=== PATIENT | female | born 1965 | race Caucasian/White ===

== ENCOUNTER 2024-01-02 21:11 | Observation (INO) ==
--- NOTE | 2024-01-02 21:31 | Emergency Department Note ---
History of Present Illness General Chief complaint: Hypertension Stated complaint: HTN Time Seen by Provider: 01/02/24 21:29 History of Present Illness NAME: SARA UNDERWOOD AGE: 58 SEX: F : 1965 ARRIVES VIA: Walk-In INFORMANT: Patient ED PROVIDER(S): VLAD Carbajal, Leonel Coates MD The patient is a pleasant 58-year-old female who arrives to the emergency department for evaluation of hypertension. She reports she was eating dinner this evening, when she noted to have some epigastric pain. She states she began to feel slightly strange, and took her blood pressure. She states her blood pressure was approximately 190s over 100s at that time. She states she currently takes losartan with hydrochlorothiazide. She also has a history of GERD which she takes Protonix and Pepcid for. She reports she came to the emergency department due to the elevated blood pressure, however she states the epigastric symptoms have resolved since. She denies any chest pain, shortness of breath, but reports slight nausea with no vomiting. She denies any history of gallbladder disease, or abdominal pain. Home Medications Medication Instructions Recorded Confirmed Type hydrochlorothiazide 25 mg tablet 25 mg PO QAM 01/02/24 01/02/24 History losartan 25 mg tablet 25 mg PO QAM 01/02/24 01/02/24 History omeprazole 40 mg capsule,delayed 40 mg PO QAM 01/02/24 01/02/24 History release rosuvastatin 20 mg tablet 20 mg PO QAM 01/02/24 01/02/24 History Allergies Allergy/AdvReac Type Severity Reaction Status Date / Time captopril AdvReac Gastrointestinal Verified 01/02/24 23:58 Upset meclizine AdvReac Gastrointestinal Verified 01/02/24 23:58 Upset Past Med/Surg History Problem List (Updated 01/03/24 @ 00:03 by VLAD Sidhu) Acute electrocardiogram changes (Acute) Hypertension (Acute) Social History Smoking Status: Never smoker Preferred Language: Barbadian Feels Safe at Home: Yes Physical Exam Vital Signs Vital Signs - 24 hr 01/02/24 21:18 01/02/24 21:32 01/02/24 21:33 Temperature 36.5 C Temperature Source Temporal Artery Scan Pulse Rate 95 H 87 84 Pulse Rate [Apical] Pulse Rate from SpO2 Sensor Pulse Rhythm Pulse Rhythm [Apical] Pulse Strength [Apical] Respiratory Rate 18 27 H Respiratory Effort / Characteristics Non-Labored Spontaneous Respiratory Depth Normal Respiratory Pattern Blood Pressure 162/96 H 150/91 H Blood Pressure [Left Arm] Blood Pressure Mean 118 110 Blood Pressure Mean [Left Arm] Pulse Oximetry 97 Oxygen Delivery Method Room Air Sepsis Recent Fever Within 48 Hours No Sepsis New/Unexplained Change in Mental Status No Sepsis Action Taken by Nursing No Action Required 01/02/24 21:42 01/02/24 21:42 01/02/24 22:03 Temperature Temperature Source Pulse Rate 81 81 Pulse Rate [Apical] 83 Pulse Rate from SpO2 Sensor Pulse Rhythm Irregular Pulse Rhythm [Apical] Irregular Pulse Strength [Apical] Normal Respiratory Rate 16 16 15 Respiratory Effort / Characteristics Non-Labored Spontaneous Respiratory Depth Normal Respiratory Pattern Regular Blood Pressure 136/89 Blood Pressure [Left Arm] 150/91 H Blood Pressure Mean 104 Blood Pressure Mean [Left Arm] 110 Pulse Oximetry 93 91 92 Oxygen Delivery Method Room Air Room Air Sepsis Recent Fever Within 48 Hours Sepsis New/Unexplained Change in Mental Status Sepsis Action Taken by Nursing 01/02/24 23:09 Temperature Temperature Source Pulse Rate 73 Pulse Rate [Apical] Pulse Rate from SpO2 Sensor 72 Pulse Rhythm Pulse Rhythm [Apical] Pulse Strength [Apical] Respiratory Rate 16 Respiratory Effort / Characteristics Respiratory Depth Respiratory Pattern Blood Pressure 126/81 Blood Pressure [Left Arm] Blood Pressure Mean 96 Blood Pressure Mean [Left Arm] Pulse Oximetry 95 Oxygen Delivery Method Room Air Sepsis Recent Fever Within 48 Hours Sepsis New/Unexplained Change in Mental Status Sepsis Action Taken by Nursing VITALS: Vitals are noted on the nurse's note and reviewed by myself. Vital signs stable. GENERAL: 58-year-old female, in no acute distress, nondiaphoretic, well- developed well-nourished. SKIN: The skin was without rashes, erythema, edema, or bruising. HEAD: Normocephalic atraumatic. MOUTH: Mucous membranes moist. Pharynx without erythema or exudate. Uvula midline. Airway patent. Tongue does not deviate. HEART: Regular rate and rhythm without murmurs gallops or rubs. LUNGS: Clear to auscultation bilaterally without wheezes, rales or rhonchi. No retractions or accessory muscle use. ABDOMEN: Positive bowel sounds x 4. Soft, slight tenderness to palpation in the epigastrium. No rebound tenderness or guarding. MUSCULOSKELETAL: No muscle atrophy, erythema, or edema noted. Normal gait. Strength 5/5 throughout. NEURO: Patient was alert and oriented to person place and time. No focal neurological deficits. Medical Decision Making Differential Diagnosis Cardiac ischemia, aortic dissection, pulmonary embolism, pneumothorax, pneumonia, pericarditis, myocarditis, esophageal rupture, GERD, cholecystitis, pancreatitis, musculoskeletal, as well as other pathologies. Medical Records Attestation: I reviewed the patient's medical records. Laboratory Data Attestation: I reviewed the patient's lab results. CBC shows slight leukopenia, with a stable hemoglobin and hematocrit, CMP shows creatinine 1.41, troponin initial is negative, repeat pending at time of admission. TSH 20.633 with free T4 of 0.68. 01/02/24 21:38 01/02/24 21:38 Lab Results 01/02/24 Range/Units 21:38 WBC 4.55 L (4.8-10.8) K/ul RBC 4.13 L (4.20-5.40) M/uL Hgb 13.1 (12.0-16.0) g/dl Hct 38.2 (37.0-47.0) % MCV 92.5 (80.0-100.0) fL MCH 31.7 (25.0-34.0) pg MCHC 34.3 (32.0-36.0) g/dL RDW Std Deviation 44.7 (36.4-46.3) fL RDW Coeff of Deloris 13.2 (11.5-14.5) % Plt Count 261 (130-400) K/uL MPV 9.5 (9.4-12.4) fL Immature Gran % (Auto) 0.2 % Neut % (Auto) 62.4 % Lymph % (Auto) 28.1 % [place] % (Auto) 6.2 % Eos % (Auto) 2.2 % Baso % (Auto) 0.9 % Neut # (Auto) 2.84 (1.40-6.50) K/uL Lymph # (Auto) 1.28 (1.20-3.40) K/uL [place] # (Auto) 0.28 (0.11-0.59) K/uL Eos # (Auto) 0.10 (0.00-0.50) K/uL Baso # (Auto) 0.04 (0.00-0.20) K/uL Immature Gran # (Auto) 0.01 (0.01-0.20) K/uL Sodium 143 (136-145) mmol/L Potassium 3.9 (3.5-5.1) mmol/L Chloride 107 (98-107) mmol/L Carbon Dioxide 29 (21-32) mmol/L Anion Gap 7 (3-11) BUN 17 (6-23) mg/dl Creatinine 1.41 H (0.6-1.2) mg/dl Est Cr Clr Drug Dosing 39.2 ml/min Est GFR ( Amer) 47.5 ml/min Est GFR (Non-Af Amer) 41.0 ml/min BUN/Creatinine Ratio 12.1 (10-20) Glucose 118 H (70-99(Fasting)) mg/dl Calcium 8.6 (8.6-10.3) mg/dl Total Bilirubin 0.3 (0.2-1.0) mg/dl AST 28 (13-39) U/L ALT 25 (7-52) U/L Alkaline Phosphatase 67 (34-104) U/L Troponin I High Sens 6.8 (0-14) pg/ml Total Protein 7.6 (6.0-8.3) gm/dl Albumin 4.8 (3.4-5.0) gm/dl Globulin 2.8 (2.5-4.0) gm/dl Albumin/Globulin Ratio 1.7 (0.9-2) Lipase 43 (11-82) U/L TSH 20.633 H (0.300-4.500) uIu/ml Free T4 0.68 (0.61-1.60) ng/dl Imaging Data Attestation: I personally reviewed and interpreted this imaging study as follows: My Impression: Initial x-ray interpretation per myself shows no acute cardiopulmonary process. ECG Data Attestation: I personally reviewed and interpreted this ECG as follows: Indication: + abdominal pain Rate (beats per minute): 79 Rhythm: + normal sinus ECG Intervals/blocks: + Right Bundle branch block Comparison ECG Date: from (08/2022) Change: the following changes noted (New RBBB) Blood Pressure Blood Pressure Findings: Elevated blood pressure Blood Pressure Disposition: further management by hospitalist MDM Narrative The patient is a pleasant well-appearing 58-year-old female who arrives to the emergency department for evaluation of the above-stated complaint. Upon examination the patient has slight tenderness to the epigastrium, with resolution of the hypertension. She denies any significant chest pain, and states she does take omeprazole as well as Pepcid daily. A saline lock was established, CBC, CMP, troponin, lipase, TSH were obtained. CBC shows slight leukopenia, with a stable hemoglobin and hematocrit, CMP shows elevation of creatinine at 1.41, initial troponin negative, repeat troponin pending at time of admission. Lipase negative, TSH elevated at 20.633, with free T4 of 0.68. EKG was obtained which showed a new right bundle branch block from her previous EKG of August 2022. Due to the patient's episode of hypertension, as well as pain in the epigastrium, I do believe the patient needs admitted to the hospital for further workup. I spoke with patient regarding the plan of care, which she was agreeable to. Case management was contacted to facilitate admission to the [facility] hospitalist group. Dr. Salas, agreed to accept the patient for admission. Please refer to his documentation for further patient workup and care. Continuous business unit leader: Order was placed for continuous business unit leader. Patient was placed on the business unit leader. Patient was noted to be in normal sinus rhythm, at an initial rate of 87 bpm. Impression & Plan Hypertension, Acute electrocardiogram changes Discharge Plan Visit Data Chief Complaint: Hypertension Stated Complaint: HTN ED Provider: Leonel Coates ED Midlevel Provider: Laurie Boone Discharge Problem: Hypertension, Acute electrocardiogram changes Forms Stand Alone Forms: My [facility] [employer] Prescriptions Prescriptions: No Action omeprazole 40 mg capsule,delayed release(DR/EC) 40 mg PO QAM losartan 25 mg tablet 25 mg PO QAM hydrochlorothiazide 25 mg tablet 25 mg PO QAM rosuvastatin 20 mg tablet 20 mg PO QAM Referrals Referrals: [facility],Medicine [Non-Staff] - Discharge Problem: Hypertension Qualifiers: Hypertension type: unspecified Qualified Code(s): I10 - Essential (primary) hypertension
[2024-01-02 21:55] LABS: Basophils # (auto) 0.04 K/uL (0.00-0.20); Basophils % (auto) 0.9 %; Eosinophils % (auto) 2.2 %; Hematocrit (blood only) 38.2 % (37.0-47.0); Hemoglobin 13.1 g/dl (12.0-16.0); Immature Granulocytes # (auto) 0.01 K/uL (0.01-0.20); Immature Granulocytes % (auto) 0.2 %; Lymphocytes # (auto) 1.28 K/uL (1.20-3.40); Lymphocytes % (auto) 28.1 %; Mean Corpuscular Hemoglobin 31.7 pg (25.0-34.0); Mean Corpuscular Hgb Conc 34.3 g/dL (32.0-36.0); Mean Corpuscular Volume 92.5 fL (80.0-100.0); Mean Platelet Volume 9.5 fL (9.4-12.4); Monocytes # (auto) 0.28 K/uL (0.11-0.59); Monocytes % (auto) 6.2 %; Neutrophils # (auto) 2.84 K/uL (1.40-6.50); Neutrophils % (auto) 62.4 %; Platelet Count 261 K/uL (130-400); RDW Coefficient of Variation 13.2 % (11.5-14.5); RDW Standard Deviation 44.7 fL (36.4-46.3); Red Blood Count 4.13 M/uL (4.20-5.40); White Blood Count 4.55 K/ul (4.8-10.8)
[2024-01-02 22:07] LABS: Albumin Globulin Ratio 1.7 (0.9-2); Albumin Level 4.8 gm/dl (3.4-5.0); BUN Creatinine Ratio 12.1 (10-20); Bilirubin,Total 0.3 mg/dl (0.2-1.0); Calcium 8.6 mg/dl (8.6-10.3); Creatinine Clr Calc Pharmacy 39.2 ml/min; Est GFR (African American) 47.5 ml/min; Globulin 2.8 gm/dl (2.5-4.0); Potassium 3.9 mmol/L (3.5-5.1); Total Protein 7.6 gm/dl (6.0-8.3)
[2024-01-02 22:14] LABS: Troponin I High Sensitivity 6.8 pg/ml (0-14)
[2024-01-02 22:33] LABS: Thyroid Stimulating Hormone 20.633 uIu/ml (0.300-4.500)
[2024-01-02 23:09] LABS: T4 Free Thyroxine 0.68 ng/dl (0.61-1.60)
[2024-01-03] MEDS: PANTOprazole 40 MG in SYRINGE 0 ML IV ONE (02:16)
--- NOTE | 2024-01-03 03:47 | History & Physical Report ---
Date of Service January 03, 2024 Assessment & Plan (1) Epigastric abdominal pain: Plan: 58-year-old female with past medical history significant for hypertension, GERD, dyslipidemia comes because of epigastric abdominal pain and elevated blood pressure and found to have abnormal EKG. Patient is from [place] and speaks Bruneian. She knows little Vietnamese. Sometimes uses phone gabriela for interpretation. Patient says today after dinner she developed severe epigastric abdominal pain associate with some nausea. And when she checked her blood pressure systolically was in 190s when she decided to come to the hospital. By time she came to the ER abdominal pain mostly subsided and her blood pressure improved. But EKG showed right bundle branch block which is new from August 2022. Currently patient resting comfortably. Says has mild headache. No dizziness. Currently nausea is improved. Vision is okay. No cough. No sore throat. No fevers. Denies any chest pain. No shortness of breath. Still has some stomach upset and epigastric abdominal pain. She had diarrhea today 2 episodes at home and 2 episodes in the ER. Micturating okay. Ambulating okay. Epigastric abdominal pain PPI and IV Pepcid N.p.o. for now If not improving will get KUB and GI consult Abnormal EKG Right bundle branch block which is new from previous EKG 2 sets of troponin negative We will follow serial cardiac enzymes and echo Consult cardiology in a.m. for further recommendations Diarrhea Will follow stool studies Denies any recent antibiotics Hypertension Will hold hydrochlorothiazide Continue losartan Will monitor MIRA Creatinine 1.4 Baseline creatinine 1.2 IV fluids If worsening will hold losartan and consult nephrology Hyperlipoidemia On statin DVT prophylaxis SCDs Disposition Observation in med/telemetry Full code History of Present Illness Chief Complaint: Epigastric abdominal pain, elevated blood pressure Primary Care Provider: VLAD Huerta 58-year-old female with past medical history significant for hypertension, GERD, dyslipidemia comes because of epigastric abdominal pain and elevated blood pressure and found to have abnormal EKG. Patient is from [place] and speaks Bruneian. She knows little Vietnamese. Sometimes uses phone gabriela for interpretation. Patient says today after dinner she developed severe epigastric abdominal pain associate with some nausea. And when she checked her blood pressure systolically was in 190s when she decided to come to the hospital. By time she came to the ER abdominal pain mostly subsided and her blood pressure improved. But EKG showed right bundle branch block which is new from August 2022. Currently patient resting comfortably. Says has mild headache. No dizziness. Currently nausea is improved. Vision is okay. No cough. No sore throat. No fevers. Denies any chest pain. No shortness of breath. Still has some stomach upset and epigastric abdominal pain. She had diarrhea today 2 episodes at home and 2 episodes in the ER. Micturating okay. Ambulating okay. Past medical history. As mentioned above Past surgical history. EGD. . Social history. No smoking. No alcohol. No drug use. Family history. Father has diabetes. Stroke. Mother has diabetes. Stomach hemorrhage. Sister has diabetes, hypertension, thyroid disorder. Allergies Allergy/AdvReac Type Severity Reaction Status Date / Time captopril AdvReac Gastrointestinal Verified 01/02/24 23:58 Upset meclizine AdvReac Gastrointestinal Verified 01/02/24 23:58 Upset Home Medications Medication Instructions Recorded Confirmed Type hydrochlorothiazide 25 mg tablet 25 mg PO QAM 01/02/24 01/02/24 History losartan 25 mg tablet 25 mg PO QAM 01/02/24 01/02/24 History omeprazole 40 mg capsule,delayed 40 mg PO QAM 01/02/24 01/02/24 History release rosuvastatin 20 mg tablet 20 mg PO QAM 01/02/24 01/02/24 History Past Med/Surg History Problem List (Updated 01/03/24 @ 03:52 by Hans Salas MD) Epigastric abdominal pain Acute electrocardiogram changes (Acute) Hypertension (Acute) Social History Smoking Status: Never smoker Second Hand Exposure: No; Do You Dip or Chew Tobacco: No; Tobacco Cessation Education Requested by Patient: No Hx Alcohol Use: No Hx Substance Use: No Preferred Language: Bruneian Hop Farmer Required: No Beliefs That Will Affect Care: None Current Living Situation: Spouse Feels Safe at Home: No Safety Concerns: Feels Safe At This Time Assistive Devices: Glasses Review of Systems Review of Systems: All systems reviewed & are unremarkable except as noted in HPI & below Physical Exam Physical Exam: General- Not in distress Head- atraumatic Eyes- PERRL. ENT- oropharynx clear Neck- supple, no JVD. Lungs- clear to auscultation no wheezing or crackles Heart- regular rhythm; no murmur, no gallop. Abdomen- normal bowel sounds, soft, epigastric tenderness present,no distension. Extremities- no pretibial edema, no erythema seen. Neuro- alert, oriented x 3; PERRL, no facial palsy; no dysarthria; moves extremities. Results & Data Results & Data Vital Signs (Past 12 Hours) Vital Signs Temp Pulse Pulse Resp BP BP Pulse Ox 01/03/24 00:36 77 16 159/93 H 96 01/03/24 00:00 71 20 152/94 H 97 01/02/24 23:30 76 19 120/88 96 01/02/24 23:09 73 16 126/81 95 01/02/24 22:03 81 15 136/89 92 01/02/24 21:42 81 16 91 01/02/24 21:42 83 16 150/91 H 93 01/02/24 21:33 84 27 H 150/91 H 01/02/24 21:32 87 01/02/24 21:18 36.5 C 95 H 18 162/96 H 97 O2 Del Method 01/03/24 00:36 Room Air 01/03/24 00:00 Room Air 01/02/24 23:30 Room Air 01/02/24 23:09 Room Air 01/02/24 22:03 01/02/24 21:42 Room Air 01/02/24 21:42 Room Air 01/02/24 21:33 01/02/24 21:32 01/02/24 21:18 Room Air Diagnostic Findings Laboratory Results WBC 4.55 K/ul (4.8-10.8) L 01/02/24 21:38 RBC 4.13 M/uL (4.20-5.40) L 01/02/24 21:38 Hgb 13.1 g/dl (12.0-16.0) 01/02/24 21:38 Hct 38.2 % (37.0-47.0) 01/02/24 21:38 MCV 92.5 fL (80.0-100.0) 01/02/24 21:38 MCH 31.7 pg (25.0-34.0) 01/02/24 21:38 MCHC 34.3 g/dL (32.0-36.0) 01/02/24 21:38 RDW Std Deviation 44.7 fL (36.4-46.3) 01/02/24 21:38 RDW Coeff of Deloris 13.2 % (11.5-14.5) 01/02/24 21:38 Plt Count 261 K/uL (130-400) 01/02/24 21:38 MPV 9.5 fL (9.4-12.4) 01/02/24 21:38 Immature Gran % (Auto) 0.2 % 01/02/24 21:38 Neut % (Auto) 62.4 % 01/02/24 21:38 Lymph % (Auto) 28.1 % 01/02/24 21:38 [place] % (Auto) 6.2 % 01/02/24 21:38 Eos % (Auto) 2.2 % 01/02/24 21:38 Baso % (Auto) 0.9 % 01/02/24 21:38 Neut # (Auto) 2.84 K/uL (1.40-6.50) 01/02/24 21:38 Lymph # (Auto) 1.28 K/uL (1.20-3.40) 01/02/24 21:38 [place] # (Auto) 0.28 K/uL (0.11-0.59) 01/02/24 21:38 Eos # (Auto) 0.10 K/uL (0.00-0.50) 01/02/24 21:38 Baso # (Auto) 0.04 K/uL (0.00-0.20) 01/02/24 21:38 Immature Gran # (Auto) 0.01 K/uL (0.01-0.20) 01/02/24 21:38 Sodium 143 mmol/L (136-145) 01/02/24 21:38 Potassium 3.9 mmol/L (3.5-5.1) 01/02/24 21:38 Chloride 107 mmol/L (98-107) 01/02/24 21:38 Carbon Dioxide 29 mmol/L (21-32) 01/02/24 21:38 Anion Gap 7 (3-11) 01/02/24 21:38 BUN 17 mg/dl (6-23) 01/02/24 21:38 Creatinine 1.41 mg/dl (0.6-1.2) H 01/02/24 21:38 Est Cr Clr Drug Dosing 39.2 ml/min 01/02/24 21:38 Est GFR ( Amer) 47.5 ml/min 01/02/24 21:38 Est GFR (Non-Af Amer) 41.0 ml/min 01/02/24 21:38 BUN/Creatinine Ratio 12.1 (10-20) 01/02/24 21:38 Glucose 118 mg/dl (70-99(Fasting)) H 01/02/24 21:38 Calcium 8.6 mg/dl (8.6-10.3) 01/02/24 21:38 Total Bilirubin 0.3 mg/dl (0.2-1.0) 01/02/24 21:38 AST 28 U/L (13-39) 01/02/24 21:38 ALT 25 U/L (7-52) 01/02/24 21:38 Alkaline Phosphatase 67 U/L (34-104) 01/02/24 21:38 Troponin I High Sens 5.9 pg/ml (0-14) 01/03/24 00:08 Total Protein 7.6 gm/dl (6.0-8.3) 01/02/24 21:38 Albumin 4.8 gm/dl (3.4-5.0) 01/02/24 21:38 Globulin 2.8 gm/dl (2.5-4.0) 01/02/24 21:38 Albumin/Globulin Ratio 1.7 (0.9-2) 01/02/24 21:38 Lipase 43 U/L (11-82) 01/02/24 21:38 TSH 20.633 uIu/ml (0.300-4.500) H 01/02/24 21:38 Free T4 0.68 ng/dl (0.61-1.60) 01/02/24 21:38 ECG Additional Comments: ECG. Normal sinus rhythm rate of 79. Right bundle branch block. QTc 481. Code Status & VTE Plan VTE Prophylaxis Plan VTE Prophylaxis will be ordered: Yes
[2024-01-03] MEDS ORDERED: ONDANSETRON INJ 2 MG/ML 2 ML VIAL IV PRN (05:08)
[2024-01-03] MEDS ORDERED: LABETALOL HCL IV 5 MG/ML 20ML IV PRN (05:08)
[2024-01-03] MEDS ORDERED: NITROGLYCERIN SL 0.4 MG/TAB TAB SL PRN (05:08)
[2024-01-03] MEDS: D5W AND 1/2NSS 1,000 ML IV SCH (05:26)
--- NOTE | 2024-01-03 07:48 | XRay Report ---
XR chest 1V portable HISTORY: 58 years-old Female Chest pain, nonspecific COMPARISON: None TECHNIQUE: AP view of the chest FINDINGS: Cardiomediastinal and hilar silhouettes are within normal limits. No pneumothorax, pleural effusion o r airspace consolidation. The bones appear intact IMPRESSION: No acute process. ACT 112: Negative or not required by law. The above report was generated using voice recognition software. It may contain grammatical, syntax o r spelling errors. Electronically signed by: Moris Abdalla M.D. 01/03/2024 7:46 AM
[2024-01-03 08:09] LABS: Basophils # (auto) 0.05 K/uL (0.00-0.20); Basophils % (auto) 0.9 %; Eosinophils # (auto) 0.11 K/uL (0.00-0.50); Eosinophils % (auto) 1.9 %; Hemoglobin 12.9 g/dl (12.0-16.0); Immature Granulocytes # (auto) 0.02 K/uL (0.01-0.20); Immature Granulocytes % (auto) 0.3 %; Lymphocytes # (auto) 1.41 K/uL (1.20-3.40); Lymphocytes % (auto) 24.4 %; Mean Corpuscular Hemoglobin 31.1 pg (25.0-34.0); Mean Corpuscular Hgb Conc 33.1 g/dL (32.0-36.0); Mean Platelet Volume 9.9 fL (9.4-12.4); Monocytes # (auto) 0.48 K/uL (0.11-0.59); Monocytes % (auto) 8.3 %; Neutrophils # (auto) 3.71 K/uL (1.40-6.50); Neutrophils % (auto) 64.2 %; Platelet Count 240 K/uL (130-400); RDW Coefficient of Variation 13.2 % (11.5-14.5); RDW Standard Deviation 45.8 fL (36.4-46.3); Red Blood Count 4.15 M/uL (4.20-5.40); White Blood Count 5.78 K/ul (4.8-10.8)
[2024-01-03 09:00] LABS: BUN Creatinine Ratio 13.8 (10-20); Calcium 8.2 mg/dl (8.6-10.3); Creatinine Clr Calc Pharmacy 44.3 ml/min; Est GFR (Non-African American) 48.3 ml/min; Magnesium 1.9 mg/dl (1.7-2.4); Potassium 3.9 mmol/L (3.5-5.1)
[2024-01-03 09:08] LABS: Troponin I High Sensitivity 7.9 pg/ml (0-14)
[2024-01-03] MEDS ORDERED: HYDROmorphone INJ 0.5 MG/0.5 ML SYR IV PRN (09:34)
--- NOTE | 2024-01-03 10:13 | Ultrasound Report ---
ABDOMINAL ULTRASOUND, RIGHT UPPER QUADRANT HISTORY: Acute right upper quadrant abdominal pain epigastric, RUQ pain after eating. COMPARISON: None. FINDINGS: Pancreas: The pancreas demonstrates a normal echotexture. Liver: No mass or marginal nodularity. Increased echogenicity with poor through transmission.. Gallbladder: No gallbladder wall thickening. No gallstones. CBD: 4 mm Right kidney: No hydronephrosis. IMPRESSION: 1. Unremarkable gallbladder. 2. No biliary duct dilation. 3. Hepatic steatosis. ACT 112: Negative or not required by law. Electronically signed by: Moris Abdalla M.D. 01/03/2024 10:11 AM
[2024-01-03] MEDS: FAMOTIDINE 20MG IV PUSH 20 MG/5 ML SYR IV SCH (10:56)
[2024-01-03] MEDS: LOSARTAN POTASSIUM 25 MG TAB PO SCH (10:56)
[2024-01-03] MEDS: ROSUVASTATIN CALCIUM 20 MG TAB PO SCH (10:56)
[2024-01-03] MEDS: PANTOprazole 40 MG TAB PO SCH (10:56)
[2024-01-03 11:27] LABS: Albumin Level 4.4 gm/dl (3.4-5.0); Bilirubin,Total 0.4 mg/dl (0.2-1.0); Total Protein 7.1 gm/dl (6.0-8.3)
--- NOTE | 2024-01-03 12:34 | Hospitalist Progress Note ---
Date of Service January 03, 2024 Assessment & Plan (1) Epigastric abdominal pain: Plan: 58-year-old female with past medical history significant for hypertension, GERD, dyslipidemia comes because of epigastric abdominal pain and elevated blood pressure and found to have abnormal EKG. Patient is from [place] and speaks Faroese. She knows little Angolan. Sometimes uses phone gabriela for interpretation. Patient says today after dinner she developed severe epigastric abdominal pain associate with some nausea. And when she checked her blood pressure systolically was in 190s when she decided to come to the hospital. By time she came to the ER abdominal pain mostly subsided and her blood pressure improved. But EKG showed right bundle branch block which is new from August 2022. Currently patient resting comfortably. Says has mild headache. No dizziness. Currently nausea is improved. Vision is okay. No cough. No sore throat. No fevers. Denies any chest pain. No shortness of breath. Still has some stomach upset and epigastric abdominal pain. She had diarrhea today 2 episodes at home and 2 episodes in the ER. Micturating okay. Ambulating okay. Epigastric abdominal pain Tender in epigastrium and RUQ on exam Given hx of epigastric abd pain, HTN after eating, gallbladder US ordered. Unremarkable Will hold off on CT abd/pelvis at this time, until MIRA resolves CT chest w/o ordered, notes small hiatal hernia and possible fatty liver PPI and IV Pepcid advance diet as tolerated Consider KUB GI consulted, appreciate recs Abnormal EKG EKG with Right bundle branch block Trops x 3 negative Echo with EF 60-65%, mild LVH, nondilated cardiac chambers, no sig valve pathology Continue to monitor on telemetry Consider cardiology consult for any other significant changes Diarrhea Will follow stool studies Denies any recent antibiotics Acute Kidney Injury Creatinine 1.4 on admission Baseline creatinine 1.2 IV fluids If worsening will hold losartan and consult nephrology Hypertension Will hold hydrochlorothiazide Continue losartan Will monitor Hyperlipoidemia On statin Diet: HH DVT prophylaxis: heparin SQ Dispo: Home once medically stable Admission and Anticipated Discharge Date Admission Date: January 03, 2024 Subjective Pt was seen multiple times during the day. Initially in the AM, stated that BP shot up after having dinner, with epigastric pain. Denied chest pain, SOB or palps at the time. Late, pt seen at bedside, alone once more. Discussion of imaging done today and plan for treatment. Agreeable. Review of Systems Review of Systems: All systems reviewed & are unremarkable except as noted in Subjective Physical Exam Physical Exam: General: Alert, oriented. No acute distress Psych: Appropriate mood and affect Neuro: No gross deficits HEENT: NC/AT Chest: Nontender to palpation. CV: RRR Resp: Breath sounds clear bilaterally, no increased effort of breathing. Abdomen: Soft, tender in epigastrium and RUQ Extremities: No edema in lower extremities bilaterally. Results & Data Results & Data Vital Signs (Past 12 Hours) Vital Signs Temp Pulse Pulse Resp BP BP Pulse Ox 01/03/24 11:33 36.4 C L 68 18 152/91 H 98 01/03/24 07:49 36.6 C 71 16 130/83 98 01/03/24 07:14 69 01/03/24 05:08 01/03/24 05:08 36.7 C 73 18 143/87 H 97 01/03/24 04:39 59 L 17 118/80 95 01/03/24 04:03 61 18 118/82 94 01/03/24 03:30 62 18 130/86 94 01/03/24 03:03 63 21 127/75 93 01/03/24 02:24 68 21 94 01/03/24 02:00 68 20 133/78 95 01/03/24 01:37 73 01/03/24 01:30 73 16 135/82 95 01/03/24 01:00 71 21 159/93 H 95 01/03/24 00:36 77 16 159/93 H 96 Pulse Ox O2 Del Method O2 Del Method 01/03/24 11:33 Room Air 01/03/24 07:49 Room Air 01/03/24 07:14 01/03/24 05:08 97 Room Air 01/03/24 05:08 Room Air 01/03/24 04:39 Room Air 01/03/24 04:03 Room Air 01/03/24 03:30 Room Air 01/03/24 03:03 Room Air 01/03/24 02:24 Room Air 01/03/24 02:00 Room Air 01/03/24 01:37 01/03/24 01:30 Room Air 01/03/24 01:00 Room Air 01/03/24 00:36 Room Air
--- NOTE | 2024-01-03 12:58 | CT Scan Report ---
CT chest diagnostic wo con CT DOSE: 577.33 mGy.cm CLINICAL HISTORY: 58 years-old Female with epigastric pain. Acute epigastric abdominal pain TECHNIQUE: Multiaxial CT images of the chest were performed without contrast. A dose lowering techni que was utilized adhering to the principles of ALARA. COMPARISON: Chest radiograph 01/02/2024 FINDINGS: No thyroid nodule or lymphadenopathy. Heart is upper limits normal in size. Mural fibrofatt y changes of the lateral wall left ventricular apex suggestive of prior myocardial infarct. There are is no pericardial effusion identified. No pleural effusion or pneumothorax. Minimal dependent subseg mental bibasilar atelectasis. No overt pulmonary edema. Central airways are patent. No acute upper abdominal abnormality. Small hiatal hernia. Heterogeneous decreased attenuation noted throughout the right hepatic lobe favors geographic hepatic steatosis. No acute fracture identified. IMPRESSION: 1. No acute process of the chest. 2. There is a large area of ill-defined decreased attenuation throughout the right hepatic lobe favor ing geographic hepatic steatosis. Attention on follow-up recommended. Correlate with LFTs. 3. No lymphadenopathy or pleural effusion. 4. Small hiatal hernia. ACT 112: Negative or not required by law. Electronically signed by: Moris Abdalla M.D. 01/03/2024 12:56 PM
[2024-01-03] MEDS: ACETAMINOPHEN 325 MG TAB PO PRN (13:41)
[2024-01-03 17:17] LABS: Adenovirus F 40/41 PCR Not Detected (NotDetected); Astrovirus PCR Not Detected (NotDetected); Campylobacter PCR Not Detected (NotDetected); Cryptosporidium PCR Not Detected (NotDetected); Cyclospora cayetanensis PCR Not Detected (NotDetected); Entamoeba histolytica PCR Not Detected (NotDetected); Enteroaggregative E.coli(EAEC) Not Detected (NotDetected); Enteropathogenic E.coli (EPEC) Not Detected (NotDetected); Enterotoxigenic E.coli (ETEC) Not Detected (NotDetected); Giardia lamblia PCR Not Detected (NotDetected); Norovirus GI/GII PCR Not Detected (NotDetected); Plesiomonas shigelloides PCR Not Detected (NotDetected); Rotavirus A PCR Not Detected (NotDetected); Salmonella PCR Not Detected (NotDetected); Sapovirus PCR Not Detected (NotDetected); Shiga-like Toxin E.coli (STEC) Not Detected (NotDetected); Shigella/Enteroinvasive E.coli Not Detected (NotDetected); Vibrio cholerae PCR Not Detected (NotDetected); Vibrio species PCR Not Detected (NotDetected); Yersinia enterocolitica PCR Not Detected (NotDetected)
--- NOTE | 2024-01-03 19:56 | Gastrointestinal Consultation ---
Date of Consultation January 03, 2024 Assessment & Plan (1) Epigastric abdominal pain: Patient has some epigastric pain and fullness she states that she gets high after eating she denies using any NSAIDs her labs are stable she does not have any elevation of lipase her ultrasound of the gallbladder was normal she is not anemic she is on famotidine as an outpatient she does have some tenderness in the epigastric region in view of that currently I would recommend 1. PPI daily 2. Will plan EGD in a.m. and further recommendations after above Thank you for allowing us to take part in the care of your patient we will continue to follow her with you History of Present Illness Reason for Consultation: Abdominal pain Requesting Physician: Milton Mckeon Attending Physician: Josselyn Feliz MD History of Present Illness A very pleasant female with a past medical history significant for hypertension, GERD, dyslipidemia who presented to the hospital after she had an elevated blood pressure on admission she was also found to have some EKG abnormalities we were consulted because the patient has been complaining of feeling full after eating as well as some abdominal pain currently she denies any abdominal pain does not have dysphagia she has some reflux she states she had an EGD about 2 years ago and she was prescribed omeprazole she still takes some famotidine denies any vomiting may have some nausea currently she states she does not have any abdominal pain per se patient does not know any Israeli and we have to speak through a translating gabriela however we were able to get most of the history from her Allergies Allergy/AdvReac Type Severity Reaction Status Date / Time captopril AdvReac Gastrointestinal Verified 01/02/24 23:58 Upset meclizine AdvReac Gastrointestinal Verified 01/02/24 23:58 Upset Home Medications Medication Instructions Recorded Confirmed Type hydrochlorothiazide 25 mg tablet 25 mg PO QAM 01/02/24 01/02/24 History losartan 25 mg tablet 25 mg PO QAM 01/02/24 01/02/24 History omeprazole 40 mg capsule,delayed 40 mg PO QAM 01/02/24 01/02/24 History release rosuvastatin 20 mg tablet 20 mg PO QAM 01/02/24 01/02/24 History Patient History Social History Smoking Status: Never smoker Second Hand Exposure: No; Do You Dip or Chew Tobacco: No; Tobacco Cessation Education Requested by Patient: No Hx Alcohol Use: No Hx Substance Use: No Preferred Language: Mozambican Software Business Analyst Required: No Beliefs That Will Affect Care: None Current Living Situation: Spouse Feels Safe at Home: No Safety Concerns: Feels Safe At This Time Assistive Devices: Glasses Review of Systems Review of Systems: A pertinent review of systems was done Physical Exam Constitutional: WD/WN, vitals as above Respiratory: normal respiratory effort, lungs clear to auscultation Cardiovascular: RRR, no murmur, no edema Gastrointestinal (Abdomen): Soft mild tenderness in the epigastric region bowel sounds are present Results & Data Vital Signs (Past 12 Hours) Vital Signs Temp Pulse Pulse Resp BP Pulse Ox O2 Del Method 01/03/24 16:02 66 01/03/24 11:33 36.4 C L 68 18 152/91 H 98 Room Air PG Care Time/CCT Total # of Minutes Spent Total Time Spent with Patient: Total time spent is greater than 50% in coordination of care (as documented) at patient's floor/unit and/or counseling patient: Coding Level of Care Code 36255 IN/OBS CONSULT LVL 2,35M History Expanded Problem Focused Exam Expanded Problem Focused Diagnoses Epigastric abdominal pain R10.13
[2024-01-03] MEDS: HEPARIN SOD 5,000 UNIT/0.5 ML VIAL SQ SCH (20:21)
--- NOTE | 2024-01-03 21:43 | Electrocardiogram Report ---
Test Reason : Blood Pressure : */* mmHG Vent. Rate : 79 BPM Atrial Rate : 79 BPM P-R Int : 162 ms QRS Dur : 128 ms QT Int : 420 ms P-R-T Axes : 52 -27 25 degrees QTcB Int : 481 ms Normal sinus rhythm Right bundle branch block Abnormal ECG No previous ECGs available Confirmed by Reynold Segundo ([id number]) on 01/03/2024 9:42:52 PM Referred By: Confirmed By: Reynold Segundo
[2024-01-04 04:50] LABS: Basophils # (auto) 0.04 K/uL (0.00-0.20); Basophils % (auto) 0.8 %; Eosinophils # (auto) 0.14 K/uL (0.00-0.50); Eosinophils % (auto) 2.9 %; Hematocrit (blood only) 38.6 % (37.0-47.0); Hemoglobin 13.2 g/dl (12.0-16.0); Immature Granulocytes # (auto) 0.01 K/uL (0.01-0.20); Immature Granulocytes % (auto) 0.2 %; Lymphocytes # (auto) 1.57 K/uL (1.20-3.40); Lymphocytes % (auto) 32.3 %; Mean Corpuscular Hemoglobin 31.9 pg (25.0-34.0); Mean Corpuscular Hgb Conc 34.2 g/dL (32.0-36.0); Mean Corpuscular Volume 93.2 fL (80.0-100.0); Mean Platelet Volume 9.8 fL (9.4-12.4); Monocytes % (auto) 8.2 %; Neutrophils % (auto) 55.6 %; Platelet Count 242 K/uL (130-400); RDW Coefficient of Variation 13.2 % (11.5-14.5); RDW Standard Deviation 45.2 fL (36.4-46.3); Red Blood Count 4.14 M/uL (4.20-5.40); White Blood Count 4.86 K/ul (4.8-10.8)
[2024-01-04 04:58] LABS: Albumin Globulin Ratio 1.6 (0.9-2); BUN Creatinine Ratio 12.5 (10-20); Bilirubin,Total 0.5 mg/dl (0.2-1.0); Calcium 8.1 mg/dl (8.6-10.3); Creatinine Clr Calc Pharmacy 48.7 ml/min; Est GFR (African American) 62.7 ml/min; Est GFR (Non-African American) 54.1 ml/min; Globulin 2.5 gm/dl (2.5-4.0); Potassium 3.7 mmol/L (3.5-5.1); Total Protein 6.5 gm/dl (6.0-8.3)
[2024-01-04 05:14] LABS: Thyroid Stimulating Hormone 7.813 uIu/ml (0.300-4.500)
[2024-01-04 05:49] LABS: T4 Free Thyroxine 0.75 ng/dl (0.61-1.60)
--- NOTE | 2024-01-04 09:21 | Gastroenterology Progress Note ---
Date of Service January 04, 2024 Assessment & Plan (1) Epigastric abdominal pain: Plan: 58 year old female with post-prandial epigastric pain Maintain NPO status EGD this AM We appreciate assistance in the management of any serological abnormality and corrections to include: hemoglobin >7, INR <2, platelets >50,000, potassium levels >3.5 but <5.3, and sodium levels within 5 points of the reference range prior to endoscopic evaluation. Admission and Anticipated Discharge Date Admission Date: January 03, 2024 Supervising Physician Co-Signing Physician Notes I examined the patient and reviewed the medical record, laboratory data and imaging studies. I agree with the assessment and plan of care as suggested by the advanced practice provider. Subjective Epigastric pain noted. NPO for EGD evaluation. Review of Systems Review of Systems: All other findings negative except as noted in HPI. Physical Exam Constitutional: WD/WN, vitals as above Respiratory: normal respiratory effort, lungs clear to auscultation Cardiovascular: Rate/Rhythm: regular rate and regular rhythm Gastrointestinal (Abdomen): normal bowel sounds, soft, nontender, no hepatosplenomegaly Skin: no rashes, warm and dry Results & Data Results & Data Vital Signs (Past 12 Hours) Vital Signs Temp Pulse Pulse Pulse Resp BP Pulse Ox 01/04/24 08:06 36.6 C 69 20 117/72 96 01/04/24 03:29 36.3 C L 70 18 118/75 95 01/04/24 00:36 36.4 C L 68 18 100/63 95 01/03/24 22:03 61 O2 Del Method 01/04/24 08:06 Room Air 01/04/24 03:29 Room Air 01/04/24 00:36 Room Air 01/03/24 22:03 Laboratory Results 01/04/24 01/03/24 01/03/24 Range/Units 04:10 13:39 10:56 WBC 4.86 (4.8-10.8) K/ul RBC 4.14 L (4.20-5.40) M/uL Hgb 13.2 (12.0-16.0) g/dl Hct 38.6 (37.0-47.0) % MCV 93.2 (80.0-100.0) fL MCH 31.9 (25.0-34.0) pg MCHC 34.2 (32.0-36.0) g/dL RDW Std Deviation 45.2 (36.4-46.3) fL RDW Coeff of Deloris 13.2 (11.5-14.5) % Plt Count 242 (130-400) K/uL MPV 9.8 (9.4-12.4) fL Immature Gran % (Auto) 0.2 % Neut % (Auto) 55.6 % Lymph % (Auto) 32.3 % [place] % (Auto) 8.2 % Eos % (Auto) 2.9 % Baso % (Auto) 0.8 % Neut # (Auto) 2.70 (1.40-6.50) K/uL Lymph # (Auto) 1.57 (1.20-3.40) K/uL [place] # (Auto) 0.40 (0.11-0.59) K/uL Eos # (Auto) 0.14 (0.00-0.50) K/uL Baso # (Auto) 0.04 (0.00-0.20) K/uL Immature Gran # (Auto) 0.01 (0.01-0.20) K/uL Sodium 140 (136-145) mmol/L Potassium 3.7 (3.5-5.1) mmol/L Chloride 107 (98-107) mmol/L Carbon Dioxide 28 (21-32) mmol/L Anion Gap 5 (3-11) BUN 14 (6-23) mg/dl Creatinine 1.12 (0.6-1.2) mg/dl Est Cr Clr Drug Dosing 48.7 ml/min Est GFR ( Amer) 62.7 ml/min Est GFR (Non-Af Amer) 54.1 ml/min BUN/Creatinine Ratio 12.5 (10-20) Glucose 114 H (70-99(Fasting)) mg/dl Calcium 8.1 L (8.6-10.3) mg/dl Total Bilirubin 0.5 0.4 (0.2-1.0) mg/dl Direct Bilirubin 0.0 (0-0.2) mg/dl AST 22 23 (13-39) U/L ALT 20 22 (7-52) U/L Alkaline Phosphatase 52 60 (34-104) U/L Troponin I High Sens 5.2 (0-14) pg/ml Total Protein 6.5 7.1 (6.0-8.3) gm/dl Albumin 4.0 4.4 (3.4-5.0) gm/dl Globulin 2.5 (2.5-4.0) gm/dl Albumin/Globulin Ratio 1.6 (0.9-2) TSH 7.813 H (0.300-4.500) uIu/ml Free T4 0.75 (0.61-1.60) ng/dl Stl C. cayetanensis PCR Not Detected (NotDetected) Stool Rotavirus A PCR Not Detected (NotDetected) Stl Adenov F 40/41 PCR Not Detected (NotDetected) Stool Astrovirus (PCR) Not Detected (NotDetected) Stool Campylobacter PCR Not Detected (NotDetected) Stl C. diff Tox B Gene Negative Cdiff Gene (Neg) Stool Cryptosporidium PCR Not Detected (NotDetected) Stl E.coli Shiga Tox PCR Not Detected (NotDetected) Stl Enterotoxigenic E PCR Not Detected (NotDetected) Stool EPEC (PCR) Not Detected (NotDetected) Stool EAEC (PCR) Not Detected (NotDetected) Stl E. histolytica PCR Not Detected (NotDetected) Stool Giardia Lamblia PCR Not Detected (NotDetected) Stool Salmonella PCR Not Detected (NotDetected) Stool Sapovirus (PCR) Not Detected (NotDetected) Stl P. shigelloides PCR Not Detected (NotDetected) Stl Shigella/EIEC PCR Not Detected (NotDetected) St Y.enterocolitica PCR Not Detected (NotDetected) Stool Vibrio (PCR) Not Detected (NotDetected) Stl Vibrio cholerae PCR Not Detected (NotDetected) Stl Norovirus GI/GII PCR Not Detected (NotDetected) PG Care Time/CCT Total # of Minutes Spent Total Time Spent with Patient: Total time spent is greater than 50% in coordination of care (as documented) at patient's floor/unit and/or counseling patient: Coding Level of Care Code None Diagnoses Epigastric abdominal pain R10.13
[2024-01-04] MEDS: SODIUM CHLORIDE 0.9% 500 ML IV SCH (09:46)
[2024-01-04] MEDS ORDERED: ePHEDrine sulfate 50 MG/ML AMP IV PRN (10:02)
[2024-01-04] MEDS ORDERED: ATROPINE SULFATE 0.1 MG/ML 10ML SYR IV PRN (10:02)
--- NOTE | 2024-01-04 10:02 | Anesthesiology Consultation ---
Date of Service January 04, 2024 Assessment & Plan Chart Review Chart Review: Acceptable Risk for Surgery and Patient NOT seen in Pre Admission Testing Consults Requested none ASA ASA3 Proposed Anesthesia Anesthesia Type: MAC Risk / Benefits Reviewed With: PT / POA / Parent / Guardian, Accepts Plan and Informed Consent Obtained History Surgery Operation Date: 01/04/24 16:45 Proposed Procedures p Esophagogastroduodenoscopy Linda Mckeon MD Height/Weight Height: 5 ft 0.24 in Weight: 71.7 kg Allergies Allergy/AdvReac Type Severity Reaction Status Date / Time captopril AdvReac Gastrointestinal Verified 01/04/24 09:38 Upset meclizine AdvReac Gastrointestinal Verified 01/04/24 09:38 Upset Medications Home Medications Medication Instructions Recorded Confirmed Last Taken hydrochlorothiazide 25 mg tablet 25 mg PO QAM 01/02/24 01/02/24 01/02/24 losartan 25 mg tablet 25 mg PO QA 01/02/24 01/02/24 01/02/24 omeprazole 40 mg capsule,delayed 40 mg PO QA 01/02/24 01/02/24 01/02/24 release rosuvastatin 20 mg tablet 20 mg PO QAM 01/02/24 01/02/24 01/02/24 Active Medications Generic Name Dose Route Start Last Admin Trade Name Baoq PRN Reason Stop Dose Admin Acetaminophen 650 mg 01/03/24 05:08 01/03/24 13:41 Acetaminophen 325 Mg Tab PO 02/02/24 05:07 650 mg Q4H PRN Administration Pain or Fever Heparin Sodium (Porcine) 5,000 units 01/03/24 21:00 01/03/24 20:21 Heparin Sod 5,000 Unit/0.5 Ml Vial SQ 02/02/24 20:59 5,000 units Q12 YUDITH Administration Dextrose/Sodium Chloride 1,000 mls @ 100 mls/hr 01/03/24 05:08 01/04/24 00:24 D5w And 1/2nss IV 02/02/24 05:07 100 mls/hr .Q10H YUDITH Administration Famotidine 20 mg in 5 mls @ 2.5 mls/min 01/03/24 09:00 01/03/24 20:21 Pepcid 20mg Iv Push IV 02/02/24 08:59 2.5 mls/min Q12H YUDITH Administration Sodium Chloride 500 mls @ 15 mls/hr 01/04/24 07:30 01/04/24 09:46 Nss IV 01/05/24 07:29 15 mls/hr .Q24H YUDITH Administration Losartan Potassium 25 mg 01/03/24 09:00 01/03/24 10:56 Losartan Potassium 25 Mg Tab PO 02/02/24 08:59 25 mg QAM YUDITH Administration Pantoprazole Sodium 40 mg 01/03/24 09:00 01/03/24 10:56 Pantoprazole 40 Mg Tab PO 02/02/24 08:59 40 mg QAM YUDITH Administration Rosuvastatin Calcium 20 mg 01/03/24 09:00 01/03/24 10:56 Rosuvastatin Calcium 20 Mg Tab PO 02/02/24 08:59 20 mg QAM YUDITH Administration NPO Date Last Intake of Fluids: 01/03/24 Time Last Intake of Fluids: 20:00 Date Last Intake of Solids: 01/03/24 Time Last Intake of Solids: 20:00 Exercise / Class Metabolic Activity II 4-5 Yardwork/Stairs/Walk up hill Past Anesthesia History No Hx of Anesthesia Complications and No Family Hx of Anesthesia Complications History of PONV No Hx of PONV and No Hx of Motion Sickness Social History Smoking Status: Never smoker Do You Dip or Chew Tobacco: No Hx Alcohol Use: No Hx Substance Use: No Physical Exam Vital Signs Last Vital Signs Temp 36.5 C 01/04/24 09:40 Pulse 80 01/04/24 09:40 Resp 16 01/04/24 09:40 BP 150/80 H 01/04/24 09:40 Pulse Ox 97 01/04/24 09:40 O2 Del Method Room Air 01/04/24 09:40 Constitutional + obese; no acute distress ENMT Mouth: no dentition abnormality Thyromental Distance: < 3.5 Finger Breadths Mallampati Class: II Neck normal visual inspection and trachea midline; neck extension not limited Respiratory normal respiratory effort Auscultation: lungs clear to auscultation bilaterally Cardiovascular Rate/Rhythm: regular rate and regular rhythm Heart Sounds: no murmur Vessels: no carotid bruit Musculoskeletal Spine: normal cervical ROM and no pain with cervical ROM Extremities: extremities normal to inspection; full ROM of extremities Neurologic moves all extremities Motor/Sensory: no sensory deficit Psychiatric Orientation: alert and oriented x 3 Testing Laboratory Results 01/04/24 04:10 01/04/24 04:10 Electrocardiogram Date: 01/04/24 Findings: + NSR @ (@ 72;RBBB) and + RBBB Chest X-Ray Date: 01/02/24 Findings: + NAD Echocardiogram Date: 01/03/24 EF: 60% LV Function: normal RWMA: + none Other Findings: + LVH (mild) Valvular Disease: + no significant valvular disease
--- NOTE | 2024-01-04 10:28 | GI REPORT ---
[facility] Patient: SARA UNDERWOOD : 1965 Sex at : Female Age: 58 Years Procedure: Upper GI endoscopy Date: 01/04/2024 Attending Physician: Milton Mckeon MD Referring MD: Josselyn Feliz Md Indications: - Epigastric abdominal pain Medications: - Monitored Anesthesia Care Complications: - No immediate complications. Estimated Blood Loss: - Estimated blood loss: None. Procedure: - The egd scope was introduced through the mouth and advanced to the second part of the duodenum. - The upper GI endoscopy was accomplished with ease. Findings: - The esophagus was normal. - There was a 4 mm polyp in the antrum which was hot snared. Diffuse gastritis. Biopsy done for H. pylori - Mild inflammation was found in the duodenal bulb. Impression: - Normal esophagus. - There was a 4 mm polyp in the antrum which was hot snared. Diffuse gastritis. Biopsy done for H. pylori - Duodenitis in the bulb. Recommendation: - Await pathology results. - PPI daily. Avoid NSAIDs Procedure Code(s): - 74793, Esophagogastroduodenoscopy, flexible, transoral; diagnostic, including collection of specimen(s) by brushing or washing, when performed (separate procedure) Diagnosis Code(s): - R10.13, Epigastric pain - K29.80, Duodenitis without bleeding CPT(R) - 2023 copyright [employer]. All Rights Reserved. The CPT codes, CCI edits and ICD codes generated are intended as suggestions and were generated based on input data. These codes are preliminary and upon check airman review may be revised to meet current compliance and payer requirements. The provider is responsible for the final determination of appropriate codes, and modifiers. Milton Mckeon MD This document has been electronically signed. Note Initiated:01/04/2024 Note Completed:01/04/2024 10:28 AM \\[id number]
[2024-01-04 10:56] VITALS: O2SAT 96
[2024-01-04 12:02] VITALS: BP 124/81; PULSE 68; RESP 18; TEMP 97.3
--- NOTE | 2024-01-04 12:26 | Anesthesiology Progress Note ---
Date of Service January 04, 2024 Anesthesia Post Procedure Vital Signs Vital Signs: Temp Pulse Pulse Pulse Resp BP Pulse Ox 01/04/24 12:02 36.3 C L 68 18 124/81 96 01/04/24 10:55 74 16 115/69 96 01/04/24 10:39 82 16 95/78 L 97 01/04/24 10:25 75 16 95/64 L 93 01/04/24 09:40 36.5 C 80 16 150/80 H 97 01/04/24 08:06 36.6 C 69 20 117/72 96 01/04/24 03:29 36.3 C L 70 18 118/75 95 01/04/24 00:36 36.4 C L 68 18 100/63 95 01/03/24 22:03 61 01/03/24 16:02 66 O2 Del Method 01/04/24 12:02 Room Air 01/04/24 10:55 Room Air 01/04/24 10:39 Room Air 01/04/24 10:25 Room Air 01/04/24 09:40 Room Air 01/04/24 08:06 Room Air 01/04/24 03:29 Room Air 01/04/24 00:36 Room Air 01/03/24 22:03 01/03/24 16:02 Transfer of Care Handoff Completed per policy Notes Mental Status: alert / awake / arousable Patient Amnestic to Procedure: Yes Nausea / Vomiting: adequately controlled Pain: adequately controlled Airway Patency, RR, SpO2: stable & adequate BP & HR: stable & adequate Hydration State: stable & adequate Anesthetic Complications: no major complications apparent
[2024-01-04] MEDS: LIDOCAINE 2% 2 ML VIAL/AMP(20MG/ML) INFIL ONE (12:45)
[2024-01-04] MEDS: PROPOFOL IV EMULSION 10 MG/ML 20 ML VIAL IV ONE (12:46)
--- NOTE | 2024-01-04 13:05 | Electrocardiogram Report ---
Test Reason : Blood Pressure : */* mmHG Vent. Rate : 72 BPM Atrial Rate : 72 BPM P-R Int : 164 ms QRS Dur : 138 ms QT Int : 458 ms P-R-T Axes : 62 -26 19 degrees QTcB Int : 501 ms Normal sinus rhythm Right bundle branch block Abnormal ECG When compared with ECG of 02-Jan-2024 21:34, No significant change was found Confirmed by Bk Bearden ([id number]) on 01/04/2024 1:04:49 PM Referred By: REFERRED SELF Confirmed By: Bk Bearden
--- NOTE | 2024-01-04 14:41 | Discharge Summary ---
Discharge Summary Date of Service January 04, 2024 Principal Dx & Hospital Course #1 = Principal Diagnosis (1) Epigastric abdominal pain: Pt is a 58-year-old female with past medical history significant for hypertension, GERD, dyslipidemia presenting with epigastric abdominal pain and elevated blood pressure and found to have abnormal EKG noting new RBBB. Patient is from [place] and speaks [place]. She knows little Citizen [place]. Sometimes uses phone gabriela for interpretation. Patient says today after dinner she developed severe epigastric abdominal pain associated with some nausea. And when she checked her blood pressure systolically was in 190s so she decided to come to the hospital. By time she came to the ER, abdominal pain had mostly subsided and her blood pressure improved. But EKG showed right bundle branch block which is new from August 2022. She had 2 episodes of diarrhea at home and 2 episodes in the ER. Epigastric abdominal pain Tender in epigastrium and RUQ on exam Given hx of epigastric abd pain, HTN after eating, gallbladder US ordered. Unremarkable Held off on CT abd/pelvis due to MIRA (see below) CT chest w/o ordered, noted small hiatal hernia and possible fatty liver Treated with PPI and IV Pepcid GI was consulted, recommended/stated the following: -s/p EGD on 01/04/24 -"Findings: - The esophagus was normal. - There was a 4 mm polyp in the antrum which was hot snared. Diffuse gastritis. Biopsy done for H. pylori - Mild inflammation was found in the duodenal bulb. Impression: - Normal esophagus. - There was a 4 mm polyp in the antrum which was hot snared. Diffuse gastritis. Biopsy done for H. pylori - Duodenitis in the bulb. Recommendation: - Await pathology results. - PPI daily. Avoid NSAIDs" PCP and GI Follow up for biopsy results. Pt switched from omeprazole to pantoprazole 40mg BID per recs of GI on discharge. Per GI, please ensure gastroenterology follow up after discharge Close GI and PCP followup after discharge Abnormal EKG EKG with Right bundle branch block, new from 2022. Trops x 3 negative Echo with EF 60-65%, mild LVH, nondilated cardiac chambers, no sig valve pathology Monitored on telemetry- noted IVCD. Consider Zio. Please ensure close outpatient Cardiology follow up after discharge. Diarrhea stool studies negative Denies any recent antibiotics PCP follow up Acute Kidney Injury Creatinine 1.4 on admission Baseline creatinine 1.2 IV fluids Cr normal on discharge at 1.12 PCP followup Hypertension Held hydrochlorothiazide Continued losartan Resume both on discharge Hyperlipidemia On statin, continue Notes For Next Care Provider Please ensure GI followup after discharge Please follow up on EGD biopsy results Please ensure follow up with Cardiology outpatient, consider Zio placement. Medication Changes From Visit pantoprazole 40mg BID Admission HPI Per Admitting Provider 58-year-old female with past medical history significant for hypertension, GERD, dyslipidemia comes because of epigastric abdominal pain and elevated blood pressure and found to have abnormal EKG. Patient is from [place] and speaks [place] Citizen. She knows little Citizen [place]. Sometimes uses phone gabriela for interpretation. Patient says today after dinner she developed severe epigastric abdominal pain associate with some nausea. And when she checked her blood pressure systolically was in 190s when she decided to come to the hospital. By time she came to the ER abdominal pain mostly subsided and her blood pressure improved. But EKG showed right bundle branch block which is new from August 2022. Currently patient resting comfortably. Says has mild headache. No dizziness. Currently nausea is improved. Vision is okay. No cough. No sore throat. No fevers. Denies any chest pain. No shortness of breath. Still has some stomach upset and epigastric abdominal pain. She had diarrhea today 2 episodes at home and 2 episodes in the ER. Micturating okay. Ambulating okay. Past medical history. As mentioned above Past surgical history. EGD. . Social history. No smoking. No alcohol. No drug use. Family history. Father has diabetes. Stroke. Mother has diabetes. Stomach hemorrhage. Sister has diabetes, hypertension, thyroid disorder. Admission Exam Per Admitting Provider General- Not in distress Head- atraumatic Eyes- PERRL. ENT- oropharynx clear Neck- supple, no JVD. Lungs- clear to auscultation no wheezing or crackles Heart- regular rhythm; no murmur, no gallop. Abdomen- normal bowel sounds, soft, epigastric tenderness present,no distension. Extremities- no pretibial edema, no erythema seen. Neuro- alert, oriented x 3; PERRL, no facial palsy; no dysarthria; moves extremities. Discharge Exam General: Alert, oriented. No acute distress Psych: Appropriate mood and affect Neuro: No gross deficits HEENT: NC/AT Chest: Nontender to palpation. CV: RRR Resp: Breath sounds clear bilaterally, no increased effort of breathing. Abdomen: Soft, tender in epigastrium and RUQ Extremities: No edema in lower extremities bilaterally. Updated Medication List Medication Instructions Recorded Confirmed Type hydrochlorothiazide 25 mg tablet 25 mg PO QAM 01/02/24 01/02/24 History losartan 25 mg tablet 25 mg PO QAM 01/02/24 01/02/24 History omeprazole 40 mg capsule,delayed 40 mg PO QAM 01/02/24 01/02/24 History release rosuvastatin 20 mg tablet 20 mg PO QAM 01/02/24 01/02/24 History pantoprazole 40 mg tablet,delayed 40 mg PO BID #60 tabs 01/04/24 Rx release Hospital Stay Data Consultations 01/02/24 23:53 ED Decision to Admit Stat 01/03/24 13:48 Consult Gastroenterology Routine Procedures Performed Operation Date: 01/04/24 16:45 Actual Procedures p EGD Polypectomy - Milton Mckeon MD Diagnostic Imagining Performed 01/03/24 08:37 US gallbladder Urgent 01/03/24 11:11 CT chest diagnostic wo con Urgent Chest X-Ray 01/02/24 21:40 XR chest 1V portable HISTORY: 58 years-old Female Chest pain, nonspecific COMPARISON: None TECHNIQUE: AP view of the chest FINDINGS: Cardiomediastinal and hilar silhouettes are within normal limits. No pneumothorax, pleural effusion or airspace consolidation. The bones appear intact IMPRESSION: No acute process. ACT 112: Negative or not required by law. The above report was generated using voice recognition software. It may contain grammatical, syntax or spelling errors. Electronically signed by: Moris Abdalla M.D. 01/03/2024 7:46 AM Gallbladder Ultrasound 01/03/24 08:37 ABDOMINAL ULTRASOUND, RIGHT UPPER QUADRANT HISTORY: Acute right upper quadrant abdominal pain epigastric, RUQ pain after eating. COMPARISON: None. FINDINGS: Pancreas: The pancreas demonstrates a normal echotexture. Liver: No mass or marginal nodularity. Increased echogenicity with poor through transmission.. Gallbladder: No gallbladder wall thickening. No gallstones. CBD: 4 mm Right kidney: No hydronephrosis. IMPRESSION: 1. Unremarkable gallbladder. 2. No biliary duct dilation. 3. Hepatic steatosis. ACT 112: Negative or not required by law. Electronically signed by: Moris Abdalla M.D. 01/03/2024 10:[address] 01/03/24 11:11 CT chest diagnostic wo con CT DOSE: 577.33 mGy.cm CLINICAL HISTORY: 58 years-old Female with epigastric pain. Acute epigastric abdominal pain TECHNIQUE: Multiaxial CT images of the chest were performed without contrast. A dose lowering technique was utilized adhering to the principles of ALARA. COMPARISON: Chest radiograph 01/02/2024 FINDINGS: No thyroid nodule or lymphadenopathy. Heart is upper limits normal in size. Mural fibrofatty changes of the lateral wall left ventricular apex suggestive of prior myocardial infarct. There are is no pericardial effusion identified. No pleural effusion or pneumothorax. Minimal dependent subsegmental bibasilar atelectasis. No overt pulmonary edema. Central airways are patent. No acute upper abdominal abnormality. Small hiatal hernia. Heterogeneous decreased attenuation noted throughout the right hepatic lobe favors geographic hepatic steatosis. No acute fracture identified. IMPRESSION: 1. No acute process of the chest. 2. There is a large area of ill-defined decreased attenuation throughout the right hepatic lobe favoring geographic hepatic steatosis. Attention on follow-up recommended. Correlate with LFTs. 3. No lymphadenopathy or pleural effusion. 4. Small hiatal hernia. ACT 112: Negative or not required by law. Electronically signed by: Moris Abdalla M.D. 01/03/2024 12:56 PM Pending Results Patient Have Any Pending Studies at Discharge: No Discharge Instructions Given to Patient (Per Discharging Provider) Sarah You were seen by the project safety manager who recommended discharge home after your procedure today. It noted inflammation in the stomach and the first part of your small intestine. They recommend that you continue with the medication pantoprazole to help your symptoms. Stop taking your home omeprazole and take pantoprazole instead. Please DO NOT USE MEDICATIONS SUCH IBUPROFEN/MOTRIN, NAPROXEN, ETC. It is ok to use Tylenol/Acetaminophen if needed. Please keep close follow up with gastroenterology after discharge. Please keep close follow up with your primary care provider after discharge. Please do not hesitate to come back to the emergency room if your symptoms worsen or return. It was a pleasure taking care of you while you were here. Total Time Total Time Spent Total Time Spent (In Minutes): 75
== END 2024-01-04 17:17 | disposition home or self-care (01) ==
LOC: ED 21:11 → 2W 21:11